=== PATIENT | female | born 1990 | race American Indian/Alaskan Native ===

== ENCOUNTER 2017-08-28 21:00 | Emergency (ER) | payer OTHER ==
[2017-08-28 21:07] VITALS: BP 111/60
[2017-08-28 21:33] LABS: Eosinophils % (Auto) 4.7 % (0.0-4.3); Hematocrit 39.2 % (30.3-42.9); Hemoglobin 12.5 gm/dl (10.1-14.3); Mean Corpuscular HGB Conc 32 % (30-34); Mean Corpuscular Hemoglobin 26 pg (28-32); Mean Corpuscular Volume 83 fl (79-97); Platelet Count 285 K/mm3 (140-440); Red Blood Count 4.74 M/mm3 (3.65-5.03); Red Cell Distribution Width 15.3 % (13.2-15.2); White Blood Count 5.7 K/mm3 (4.5-11.0)
[2017-08-28 21:49] LABS: BUN/Creatinine Ratio 18; Blood Urea Nitrogen 9 mg/dL (7-17); Carbon Dioxide 26 mmol/L (22-30); Glucose 98 mg/dL (65-100)
[2017-08-28 21:50] LABS: Anion Gap 16 mmol/L; Sodium 140 mmol/L (137-145)
[2017-08-29 00:26] LABS: Bacteria,Urine 1+ /HPF (Negative); Bilirubin,Urine NEG (Negative); Blood,Urine NEG (Negative); Ketones,Urine NEG (Negative); Leukocyte Esterase,Urine NEG (Negative); Mucus,Urine FEW /HPF; Nitrite,Urine NEG (Negative); Protein,Urine <15 mg/dL mg/dL (Negative); Urobilinogen,Urine < 2.0 mg/dL (<2.0)
== END 2017-08-28 23:55 | disposition left against medical advice (07) ==
LOC: ED 21:00
DX: R07.9 Chest pain, unspecified (principal); Z53.21 Procedure and treatment not carried out due to patient leaving prior to being seen by health care provider
CPT/HCPCS: 36415; 80048; 81001; 81025; 84484; 85025; 93005; 93010

== ENCOUNTER 2017-11-16 13:44 | Emergency (ER) | payer SELFPAY ==
[2017-11-16 13:52] VITALS: BP 109/52
--- NOTE | 2017-11-16 15:36 | Emergency Department Report ---
Blank Doc - Documentation Documentation: 27-year-old female presents to the hospital complaining of swelling to anterior left ear pain as well as chest and heart symptoms. Patient has a preauricular pits since . It has been intermittently swelling but resolved spontaneously in the past. Patient presents here with recurrent swelling and pain to the area. She went to another hospital 2 days ago and was told she has abscess and was prescribed Bactrim. Patient starting having a "funny feeling in her chest" that is intermittent that she is unable to characterize further. No aggravating or alleviating factors reported. She complains of intermittent palpitations but denies shortness of breath, recent travel, control pill use, tobacco alcohol use, or calf tenderness or edema. She is concerned that the infection at her ear is worsening and causing her secondary symptoms. Clinically appears that patient has a preauricular/cysts with possible abscess. Labs ordered CBC, BMP, and thyroid panel to evaluate for intermittent palpitations. EKG normal sinus
[2017-11-16 16:17] LABS: Basophils % (Auto) 0.8 % (0.0-1.8); Eosinophils # (Auto) 0.2 K/mm3 (0.0-0.4); Eosinophils % (Auto) 3.1 % (0.0-4.3); Hematocrit 37.4 % (30.3-42.9); Hemoglobin 12.2 gm/dl (10.1-14.3); Lymphocytes # (Auto) 1.6 K/mm3 (1.2-5.4); Lymphocytes % (Auto) 26.7 % (13.4-35.0); Mean Corpuscular HGB Conc 33 % (30-34); Mean Corpuscular Hemoglobin 27 pg (28-32); Mean Corpuscular Volume 81 fl (79-97); Monocytes # (Auto) 0.4 K/mm3 (0.0-0.8); Monocytes % (Auto) 6.9 % (0.0-7.3); Platelet Count 285 K/mm3 (140-440); Red Cell Distribution Width 15.7 % (13.2-15.2)
[2017-11-16 16:35] LABS: BUN/Creatinine Ratio 10; Blood Urea Nitrogen 6 mg/dL (7-17); Calcium 9.1 mg/dL (8.4-10.2); Hemolysis Index 1
[2017-11-16 16:43] LABS: Free T4 (Free Thyroxine) 1.05 ng/dL (0.76-1.46)
--- NOTE | 2017-11-16 16:48 | Emergency Department Report ---
ED ENT HPI - General Chief complaint: Arrhythmia/Palpitations Stated complaint: FACIAL SWELLING,CHEST/HEART RACING Time Seen by Provider: 11/16/17 15:20 Source: patient Mode of arrival: Ambulatory Limitations: No Limitations - History of Present Illness Initial comments: 27-year-old female past medical history preauricular pit bilaterally presents with complaint of several days of left-sided preauricular discomfort. Patient states that she was seen in another emergency Department 2 days ago for this issue prescribed anti-inflammatories and antibiotics and discharged. Patient states that she has been feeling slightly out of the ordinary for the last few days. Patient was screened by Dr. Hernandez initially. Wants her infected preauricular pit reevaluated. Patient states she has not seen an ENT physician for this issue Onset/Timin -: days(s) Severity: mild Consistency: constant Improves with: none Worsens with: none - Related Data Previous Rx's Medication Instructions Recorded Last Taken Type Cephalexin [Keflex] 500 mg PO BID #14 capsule 11/16/17 Unknown Rx Allergies Allergy/AdvReac Type Severity Reaction Status Date / Time No Known Allergies Allergy Unverified 08/28/17 21:07 ED Dental HPI - General Chief complaint: Arrhythmia/Palpitations Stated complaint: FACIAL SWELLING,CHEST/HEART RACING Time Seen by Provider: 11/16/17 15:20 Source: patient Mode of arrival: Ambulatory Limitations: No Limitations - Related Data Previous Rx's Medication Instructions Recorded Last Taken Type Cephalexin [Keflex] 500 mg PO BID #14 capsule 11/16/17 Unknown Rx Allergies Allergy/AdvReac Type Severity Reaction Status Date / Time No Known Allergies Allergy Unverified 08/28/17 21:07 ED Review of Systems ROS: Stated complaint: FACIAL SWELLING,CHEST/HEART RACING Other details as noted in HPI Constitutional: denies: chills, fever Eyes: denies: eye pain, eye discharge, vision change ENT: as per HPI (history of preauricular pits bilaterally, left-sided preauricular pit pain for the last several days). denies: ear pain, throat pain Respiratory: denies: cough, shortness of breath, wheezing Cardiovascular: denies: chest pain, palpitations Endocrine: no symptoms reported Gastrointestinal: denies: abdominal pain, nausea, diarrhea Genitourinary: denies: urgency, dysuria, discharge Musculoskeletal: denies: back pain, joint swelling, arthralgia Skin: denies: rash, lesions Neurological: denies: headache, weakness, paresthesias Psychiatric: denies: anxiety, depression Hematological/Lymphatic: denies: easy bleeding, easy bruising ED Past Medical Hx - Past Medical History Previous Medical History?: No - Surgical History Past Surgical History?: No - Social History Smoking Status: Never Smoker Substance Use Type: None - Medications Home Medications: Home Medications Medication Instructions Recorded Confirmed Last Taken Type Cephalexin [Keflex] 500 mg PO BID #14 capsule 11/16/17 Unknown Rx ED Physical Exam - General Limitations: No Limitations General appearance: alert, in no apparent distress - Head Head exam: Present: atraumatic, normocephalic - Eye Eye exam: Present: normal appearance, PERRL, EOMI - ENT ENT exam: Present: mucous membranes moist - Expanded ENT Exam Expanded 1 - Preauricular pit here with some erythema and discomfort to palpation - Neck Neck exam: Present: normal inspection - Respiratory Respiratory exam: Present: normal lung sounds bilaterally. Absent: respiratory distress - Cardiovascular Cardiovascular Exam: Present: regular rate, normal rhythm. Absent: systolic murmur, diastolic murmur, rubs, gallop - GI/Abdominal GI/Abdominal exam: Present: soft, normal bowel sounds - Extremities Exam Extremities exam: Present: normal inspection - Back Exam Back exam: Present: normal inspection - Neurological Exam Neurological exam: Present: alert, oriented X3 - Psychiatric Psychiatric exam: Present: normal affect, normal mood - Skin Skin exam: Present: warm, dry, intact, normal color. Absent: rash ED Course Vital Signs 11/16/17 13:49 Temperature 98.3 F Pulse Rate 82 Respiratory 18 Rate Blood Pressure 109/52 O2 Sat by Pulse 98 Oximetry ED Medical Decision Making - Lab Data Result diagrams: 11/16/17 15:39 11/16/17 15:39 - Medical Decision Making A/P: Infected preauricular pit left side 1-pt is on Bactrim will add empiric course of Keflex as well 2-I referred patient to ENT and advised her to follow-up as she has had recurrences of infections of her preauricular pits in the past 3-labs unremarkable, EKG unremarkable. Warm compresses when necessary, advised patient to return to the ED for significant enlargement of pit area, fevers and chills, inability to tolerate by mouth, worsened headache. Stated she understood these instructions Critical care attestation.: If time is entered above; I have spent that time in minutes in the direct care of this critically ill patient, excluding procedure time. ED Disposition Clinical Impression: Preauricular sinus, pit or fistula Disposition: - TO HOME OR SELFCARE Is pt being admited?: No Does the pt Need Aspirin: No Condition: Stable Instructions: Cellulitis (ED) Prescriptions: Cephalexin [Keflex] 500 mg PO BID #14 capsule Referrals: [facility]NT [facility], [facility] [Provider Group] - 3-5 Days [facility]NT [facility] [Provider Group] - 3-5 Days ANNMARIE GUADARRAMA MD [Staff Physician] - 3-5 Days Forms: Work/School Release Form(ED) Time of Disposition: 16:47
== END 2017-11-16 17:00 | disposition home or self-care (01) ==
LOC: ED 13:44
DX: Q18.1 Preauricular sinus and cyst (principal); L98.8 Other specified disorders of the skin and subcutaneous tissue
CPT/HCPCS: 36415; 80048; 84439; 84443; 84703; 85025; 93005; 93010; 99283

== ENCOUNTER 2019-01-01 01:27 | Emergency (ER) | payer OTHER ==
--- NOTE | 2019-01-01 04:17 | Emergency Department Report ---
ED ENT HPI - General Chief complaint: Sore Throat Stated complaint: THROAT PAIN, PRESSURE, LUMP Time Seen by Provider: 01/01/19 04:06 Source: patient Mode of arrival: Ambulatory Limitations: No Limitations - History of Present Illness Initial comments: 28-year-old -[place] female presents to the emergency room stating that it feels as if she has a lump in her throat for the last 2 days. Patient reports that she's had this feeling I feel weeks ago and has come back today. Patient reports has not taken anything for pain. Patient denies any difficulty swallowing denies any fever patient felt chills. -: days(s) (2) Location: throat Consistency: intermittent Improves with: none Worsens with: none - Related Data Previous Rx's Medication Instructions Recorded Last Taken Type Cephalexin [Keflex] 500 mg PO BID #14 capsule 11/16/17 Unknown Rx Ibuprofen [Motrin] 600 mg PO Q8H PRN #30 tablet 11/16/17 Unknown Rx Allergies Allergy/AdvReac Type Severity Reaction Status Date / Time No Known Allergies Allergy Verified 01/01/19 01:35 ED Dental HPI - General Chief complaint: Sore Throat Stated complaint: THROAT PAIN, PRESSURE, LUMP Time Seen by Provider: 01/01/19 04:06 Source: patient Mode of arrival: Ambulatory Limitations: No Limitations - Related Data Previous Rx's Medication Instructions Recorded Last Taken Type Cephalexin [Keflex] 500 mg PO BID #14 capsule 11/16/17 Unknown Rx Ibuprofen [Motrin] 600 mg PO Q8H PRN #30 tablet 11/16/17 Unknown Rx Allergies Allergy/AdvReac Type Severity Reaction Status Date / Time No Known Allergies Allergy Verified 01/01/19 01:35 ED Review of Systems ROS: Stated complaint: THROAT PAIN, PRESSURE, LUMP Other details as noted in HPI ED Past Medical Hx - Past Medical History Previous Medical History?: No - Surgical History Past Surgical History?: No - Social History Smoking Status: Never Smoker Substance Use Type: None - Medications Home Medications: Home Medications Medication Instructions Recorded Confirmed Last Taken Type Cephalexin [Keflex] 500 mg PO BID #14 capsule 11/16/17 Unknown Rx Ibuprofen [Motrin] 600 mg PO Q8H PRN #30 tablet 11/16/17 Unknown Rx ED Physical Exam - General Limitations: No Limitations ED Course Vital Signs 01/01/19 01:33 Temperature 98.4 F Pulse Rate 105 H Respiratory 16 Rate Blood Pressure 151/74 O2 Sat by Pulse 99 Oximetry ED Medical Decision Making - Radiology Data Radiology results: report reviewed Patient: MIRZA SHAFFER MR#: [id number] : 1990 Acct:[id number] Age/Sex: 28 / F ADM Date: 01/01/19 Loc: ED Attending Dr: Ordering Physician: CRISTIAN LAU Date of Service: 01/01/19 Procedure(s): XR neck soft tissue Accession Number(s): [id number] cc: CRISTIAN LAU Fluoro Time In Minutes: PROCEDURE: XR NECK SOFT TISSUE TECHNIQUE: Soft tissue neck radiographs, 2 views, including AP and lateral. HISTORY: lump in throat COMPARISONS: None . FINDINGS: Bone mineralization: Normal . Alignment: Normal . Soft tissues: Epiglottis and hypopharyngeal soft tissues normal . Foreign bodies: None . IMPRESSION: Normal Examination . This document is electronically signed by Harjeet Godoy MD., January 01 2019 04:58:49 AM ET Transcribed By: CO Dictated By: HARJEET GODOY MD Electronically Authenticated By: HARJEET GODOY MD Signed Date/Time: 01/01/19 050 DD/ 7 TD/TT: 01/01/19447 - Medical Decision Making Patient has been evaluated by this provider in fast track. Patient question if she needed to have an x-ray as she's had 3 in the recent past and concern for radiation exposure. I discussed the patient she has great concerns of radiation exposure and that she can follow up with the ear nose and throat provider and be evaluated to see if she truly needs an x-ray of her throat/trachea/esophagus. I did inform patient my concerns that she may have a goiter. Patient does stress to me she's had negative TSH's in the past. Critical care attestation.: If time is entered above; I have spent that time in minutes in the direct care of this critically ill patient, excluding procedure time. ED Disposition Clinical Impression: Sensation of lump in throat Disposition: DC-01 TO HOME OR SELFCARE Is pt being admited?: No Does the pt Need Aspirin: No Condition: Stable Additional Instructions: Recommend taking Tylenol and/or ibuprofen for any pain or discomfort. I highly recommend free to follow-up with the ear nose and throat provider I have listed one below for your convenience. Please understand we're here 24 hours a day for like to be evaluated. Referrals: [facility] MD MEL [Primary Care Provider] - 3-5 Days MARY JANE DUMONT MD [Staff Physician] - 3-5 Days Forms: Accompanied Note, Work/School Release Form(ED)
--- NOTE | 2019-01-01 05:00 | XRay Report ---
PROCEDURE: XR NECK SOFT TISSUE TECHNIQUE: Soft tissue neck radiographs, 2 views, including AP and lateral. HISTORY: lump in throat COMPARISONS: None . FINDINGS: Bone mineralization: Normal . Alignment: Normal . Soft tissues: Epiglottis and hypopharyngeal soft tissues normal . Foreign bodies: None . IMPRESSION: Normal Examination . This document is electronically signed by Harjeet Alonso MD., January 01 2019 04:58:49 AM ET
[2019-01-01 05:54] VITALS: BP 136/70
== END 2019-01-01 05:40 | disposition home or self-care (01) ==
LOC: ED 01:27
DX: J02.9 Acute pharyngitis, unspecified (principal)
CPT/HCPCS: 70360; 99283

== ENCOUNTER 2020-09-20 05:07 | Emergency (ER) | payer SELFPAY ==
[2020-09-20 06:44] VITALS: BP 102/64
[2020-09-20 08:10] LABS: Hematocrit 36.4 % (30.3-42.9); Hemoglobin 11.6 gm/dl (10.1-14.3); Mean Corpuscular HGB Conc 32 % (30-34); Mean Corpuscular Volume 79 fl (79-97); Platelet Count 310 K/mm3 (140-440); Red Cell Distribution Width 16.1 % (13.2-15.2)
[2020-09-20 09:16] LABS: Blood Urea Nitrogen 9 mg/dL (7-17); Calcium 9.6 mg/dL (8.4-10.2); Hemolysis Index 3
[2020-09-20 09:33] LABS: BUN/Creatinine Ratio 13
[2020-09-20 13:10] LABS: Total Cells Counted 100
[2020-09-20 13:11] LABS: Macrocytosis Few
[2020-09-20 13:12] LABS: Platelet Estimate Consistent w Auto; Poikilocytosis Few
== END 2020-09-20 15:00 | disposition left against medical advice (07) ==
LOC: ED 05:07
DX: R53.1 Weakness (principal); Z53.21 Procedure and treatment not carried out due to patient leaving prior to being seen by health care provider
CPT/HCPCS: 36415; 80048; 84703; 85007; 85025

== ENCOUNTER 2021-11-04 03:53 | Emergency (ER) | payer SELFPAY ==
[2021-11-04 04:08] VITALS: BP 102/71
== END 2021-11-04 07:40 | disposition left against medical advice (07) ==
LOC: ED 03:53
DX: Z00.00 Encounter for general adult medical examination without abnormal findings (principal); Z53.21 Procedure and treatment not carried out due to patient leaving prior to being seen by health care provider